=== PATIENT | female | born 1940 ===

== ENCOUNTER 2016-07-28 19:11 | Emergency (ER) | payer MEDICARE ==
[2016-07-28 19:20] VITALS: BP 148/90; PULSE 102; RESP 18; O2SAT 98
[2016-07-28] MEDS ORDERED: Sodium Chloride 0.9% 500 ML IV ONE (19:53)
--- NOTE | 2016-07-28 19:57 | ED PDOC ---
HPI: Abdomen <Lisandra Tom - Last Filed: 07/28/16 20:04> <Alex Paredes - Last Filed: 07/28/16 21:33> Chief Complaint (Nursing): GI Problem Additional Complaint(s): 76yo F with PMHx HTN, DM c/o diarrhea. Non-bloody diarrhea x2 days, x6 BM per day, started after eating timoteo food. Denies fever, chills, nausea, vomiting, abdominal pain. Compliant with medications. Denies h/o colititis or diverticulitis. SHx significant for cholecystectomy. PMD Dr. Betancourt (Jose Tom) Supervising Attending Note - Supervising Attending Note The Documented history was done by the: Physician Pharmacy Billing Adjudicator, Attending Physician The documented physical exam was done by the: Physician Pharmacy Billing Adjudicator, Attending Physician The documented procedures were done by the: Physician Pharmacy Billing Adjudicator, Attending Physician - Attestation: I have personally seen and examined this patient.: Yes I have fully participated in the care of the patient.: Yes I have reviewed all pertinent clinical information: Yes <Alex Paredes - Last Filed: 07/28/16 21:33> Past Medical History - Medical History PMH: Diabetes, HTN Denies: Arthritis, Asthma, Atrial Fibrillation, CHF, COPD, Hypercholesterolemia, Seizures - Surgical History Surgical History: Denies: CABG, Pacemaker - Family History Family History: Denies: CAD <Lisandra Tom - Last Filed: 07/28/16 20:04> <Alex Paredes - Last Filed: 07/28/16 21:33> Vital Signs: Last Vital Signs Temp Pulse 102 H 07/28/16 19:16 Resp 18 07/28/16 19:16 BP 148/90 07/28/16 19:16 Pulse Ox 98 07/28/16 20:04 - Home Medications Home Medications: Ambulatory Orders Medication Instructions Recorded Loperamide [Imodium] 2 mg PO ONCE #1 cap 07/28/16 - Allergies Allergies/Adverse Reactions: Allergies Allergy/AdvReac Type Severity Reaction Status Date / Time iodine Allergy SHORTNESS Verified 11/09/15 08:33 OF BREATH Review of Systems ROS Statement: Except As Marked, All Systems Reviewed And Found Negative Constitutional: Negative for: Fever, Chills Gastrointestinal: Positive for: Diarrhea. Negative for: Nausea, Vomiting, Abdominal Pain <Lisandra - Last Filed: 07/28/16 20:04> Physical Exam - Physical Exam Appears: Positive for: Well, No Acute Distress Head Exam: Positive for: ATRAUMATIC, NORMAL INSPECTION Skin: Positive for: Warm, Dry Eye Exam: Positive for: Normal appearance. Negative for: Scleral icterus Neck: Positive for: Normal, Supple Cardiovascular/Chest: Positive for: Regular Rate, Rhythm Respiratory: Positive for: Normal Breath Sounds Gastrointestinal/Abdominal: Positive for: Bowel Sounds, Soft. Negative for: Tenderness, Distended, Guarding Back: Positive for: Normal Inspection Extremity: Negative for: Tenderness, Pedal Edema Neurologic/Psych: Positive for: Alert, Oriented <Lisandra - Last Filed: 07/28/16 20:04> - ECG O2 Sat by Pulse Oximetry: 98 < - Last Filed: 07/28/16 20:04> - Laboratory Results Result Diagrams: 07/28/16 20:05 07/28/16 20:05 - Progress Re-evaluation Time: 21:30 Condition: Re-examined, Improved <Alex Paredes Evelyn - Last Filed: 07/28/16 21:33> Medical Decision Making <Jose - Last Filed: 07/28/16 20:04> <Alex Paredes - Last Filed: 07/28/16 21:33> Medical Decision Makin DDx gastroenteritis, dehydration, colitis CBC, CMP, lipase NS 500cc bolus accucheck BS 113 reassessment () Disposition <Lisandra - Last Filed: 07/28/16 20:04> - Patient ED Disposition Is Patient to be Admitted: No Doctor Will See Patient In The: Office Counseled Patient/Family Regarding: Studies Performed, Diagnosis, Need For Followup - Disposition Disposition: Routine/Home Disposition Time: 21:31 <Alex Paredes - Last Filed: 07/28/16 21:33> - Clinical Impression Clinical Impression: Diarrhea - Disposition Referrals: Og Betancourt MD [Family Provider] - Condition: GOOD Additional Instructions: Drink plenty of fluids at home. Follow up with your PCP in 2-3 days. Prescriptions: Loperamide [Imodium] 2 mg PO ONCE #1 cap Instructions: Acute Diarrhea (ED)
[2016-07-28 20:11] LABS: BASO % 0.5 % (0.0-2.0); EOS % 0.5 % (0.0-4.0); HEMATOCRIT 48.7 % (34.0-47.0); LYMPH # 1.3 K/uL (1.0-4.3); LYMPH % 23.8 % (20.0-40.0); MEAN CELL VOLUME 86.3 fl (81.0-99.0); MEAN CORPUSCULAR HEMOGLOBIN 28.5 pg (27.0-31.0); MONO # 0.6 K/uL (0.0-0.8); MONO % 11.2 % (0.0-10.0); NEUT # 3.5 K/uL (1.8-7.0); NRBC % 0.1 % (0.0-0.0); RED CELL DISTRIBUTION WIDTH 14.1 % (11.5-14.5); WHITE BLOOD COUNT 5.4 K/uL (4.8-10.8)
[2016-07-28 20:23] LABS: ALB/GLOB RATIO 1.3 (1.0-2.1); ALKALINE PHOSPHATASE 186 U/L (38-126); ALT/SGPT 61 U/L (9-52); AST/SGOT 46 U/L (14-36); BILIRUBIN,TOTAL 2.1 mg/dl (0.2-1.3); BLOOD UREA NITROGEN 17 mg/dl (7-17); CARBON DIOXIDE 21 mmol/L (22-30); CHLORIDE 104 mmol/L (98-107); GFR AFRICAN-AMERICAN > 60; GLUCOSE,RANDOM 123 mg/dL (65-105); LIPASE 74 U/L (23-300); SODIUM 140 mmol/l (132-148); TOTAL PROTEIN 8.1 G/DL (6.3-8.2)
== END 2016-07-28 21:34 | disposition home or self-care (01) ==
LOC: H.ER 19:11
DX: R19.7 Diarrhea, unspecified (principal); E11.9 Type 2 diabetes mellitus without complications; I10 Essential (primary) hypertension
CPT/HCPCS: 80053; 83690; 85025; 96360; 99283; J7040